=== PATIENT | male | born 1970 | race Caucasian/White ===

== ENCOUNTER 2025-10-09 17:00 | Emergency (ER) | payer MEDICAID ==
[~2025-10-09] VITALS: Ht 175.3 cm; Wt 113.0 kg
[2025-10-09 17:02] VITALS: TEMP 98.3; O2SAT 99
[2025-10-09 18:55] VITALS: BP 158/92; PULSE 98; RESP 16
[2025-10-09] MEDS: IBUPROFEN 600MG TABLET PO ONE (18:55)
== END 2025-10-09 20:25 | disposition home or self-care (01) ==
LOC: ER 17:00
DX: M79.89 Other specified soft tissue disorders (principal); F20.9 Schizophrenia, unspecified
CPT/HCPCS: 99283; A4606